=== PATIENT | male | born 1995 | race African-American/Black ===

== ENCOUNTER 2018-03-15 16:14 | Emergency (ER) | payer OTHER ==
[2018-03-15] MEDS: KETOROLAC TROMETHAMINE 10 MG TAB PO (17:19)
[2018-03-15] MEDS: CYCLOBENZAPRINE 10 MG TAB PO (17:19)
== END 2018-03-15 17:32 | disposition home or self-care (01) ==
LOC: M ED 16:14
DX: S39.012A Strain of muscle, fascia and tendon of lower back, initial encounter (principal); X50.0XXA Overexertion from strenuous movement or load, initial encounter; Y92.018 Other place in single-family (private) house as the place of occurrence of the external cause
CPT/HCPCS: 99283